=== PATIENT | female | born 1940 ===

== ENCOUNTER 2024-05-22 05:27 | Day surgery (SDC) | payer OTHER ==
[2024-05-18 09:46] LABS: URINE APPEARANCE Clear; URINE BILIRRUBIN Negative (NEGATIVE); URINE BLOOD Negative; URINE COLOR Yellow; URINE GLUCOSE Negative (NEGATIVE); URINE KETONE Negative (NEGATIVE); URINE LEUKOCYTE Trace; URINE NITRATE Negative; URINE PROTEIN Negative (NEGATIVE); URINE UROBILINOGEN 0.2 E.U./dl
[2024-05-18 09:49] LABS: URINE BACTERIA 163.7 uL (0.0-1933); URINE EPITHELIAL CELLS 23.3 uL (0.0-38.8); URINE WBC 26.2 uL (0.0-23.2)
[2024-05-18 09:54] LABS: URINE CAST 0.15 uL (0.0-1.40); URINE RBC 1.5 uL (0.0-20.8)
[2024-05-18 10:32] LABS: INR 0.97; PARTIAL THROMBOPLASTIN TIME 28.2 SECONDS (22.0-34.0); PROTHROMBIN TIME 10.6 SECONDS (9.0-11.5)
[2024-05-18 10:37] LABS: ALBUMIN 3.8 gm/dL (3.4-5.0); BILIRUBIN TOTAL 0.52 mg/dL (0.3-1.2); CALCIUM 9.7 mg/dL (8.5-10.1); CREATININE SERUM 0.7 mg/dL (0.55-1.02); GFR 79.53; GLOBULINA 3.7 G/DL (2.4-3.5); POTASSIUM 4.88 mEq/L (3.5-5.1); TOTAL PROTEIN 7.5 gm/dL (6.4-8.2)
[2024-05-18 10:47] VITALS: BP 137/55
[2024-05-18 10:57] LABS: HEMATOCRIT 35.3 % (36.0-45.00); HEMOGLOBIN 11.9 g/dL (12.0-15.00); MEAN CELL VOLUME 83.9 fL (80.00-100.00); MEAN CORPUSCULAR HEMOGLOBIN 28.3 pg (27.00-32.0); MEAN CORPUSCULAR HGB CONC 33.8 g/dl (32.0-36.0); PLATELET COUNT 319 K/uL (150-450); RED BLOOD COUNT 4.21 M/uL (4.00-6.00); RED CELL DISTRIBUTION WIDTH 13.1 % (11.5-14.5)
[~2024-05-22] VITALS: Ht 165.1 cm; Wt 58.1 kg
[~2024-05-22 05:27] MED LIST: AVAPRO300 MG PO; JANUVIA100 MG PO; LANTUS SOL100 UNIT/1; METFORMIN HCL1000 M2 PO; NORVASC5 MG PO; SIMVASTATIN20 MG PO; SYNTHROID50 MCG PO
[2024-05-22] MEDS ORDERED: BUPIVACAINE HCL 30 ML VIAL IJ ONE (09:15)
[2024-05-22] MEDS ORDERED: CEFAZOLIN SODIUM 1,000 MG VIAL IV ONE (09:15)
== END 2024-05-22 12:20 | disposition home or self-care (01) ==
LOC: CIR.AMB 05:27
PROVIDERS: ATTEND Orthopaedic Surgery Hand Surgery
DX: S62.324A Displaced fracture of shaft of fourth metacarpal bone, right hand, initial encounter for closed fracture (principal); I10 Essential (primary) hypertension; E78.5 Hyperlipidemia, unspecified; E11.9 Type 2 diabetes mellitus without complications; K21.9 Gastro-esophageal reflux disease without esophagitis; E03.9 Hypothyroidism, unspecified